=== PATIENT | female | born 1975 | race Caucasian/White ===

== ENCOUNTER 2016-11-07 08:06 | Outpatient (CLI) | payer MEDICAID ==
[2015-02-04 09:50] VITALS: BMI 31.2
[~2016-11-07 08:06] MED LIST: ADVAIR 250/501 DISK INH; AYGESTIN5 MG PO; NAPROSYN500 MG PO; RESTORIL15 MG PO; SINGULAIR10 MG PO; SYNTHROID112 MCG PO; VENTOLIN HFA18 GM INH; VICTOZA0.6 MG/0.1 SQ; XANAX0.5 MG PO; ZANTAC150 MG PO; ZESTRIL10 MG PO; ZOLOFT100 MG PO
== END 2016-11-07 14:21 ==
LOC: D.MAMMO 08:06
DX: Z12.31 Encounter for screening mammogram for malignant neoplasm of breast (principal)